=== PATIENT | female | born 1970 | race Caucasian/White ===

== ENCOUNTER → 2019-01-19 | Outpatient (CLI) | payer OTHER ==
[~2019-01-19] MED LIST: FERROUS SULFAT325 M2 PO; MULTIPLE VITAMI1 CAP PO
== END | disposition home or self-care (01) ==
LOC: ORTHO 02:52
DX: M76.891 Other specified enthesopathies of right lower limb, excluding foot (principal)

== ENCOUNTER → 2019-02-08 | Outpatient (CLI) | payer OTHER | END | disposition home or self-care (01) | LOC: MRI 14:35 | DX: S83.241A Other tear of medial meniscus, current injury, right knee, initial encounter (principal); X58.XXXA Exposure to other specified factors, initial encounter; Y93.89 Activity, other specified; Y92.89 Other specified places as the place of occurrence of the external cause; Y99.8 Other external cause status ==

== ENCOUNTER 2021-03-31 14:34 | Emergency (ER) | payer OTHER ==
[~2021-03-31] VITALS: Ht 160 cm; Wt 86.2 kg
[2021-03-31 17:48] LABS: MEAN CELL VOLUME 57.3 fl (81.0-99.0); MEAN CORPUSCULAR HGB 14.3 pg (27.0-31.0); NUCLEATED RED BLOOD CELL 0.2 % (0.0-0.0); PLATELET COUNT AUTOMATED 338 10*3/uL (130-400); RED BLOOD COUNT 3.07 10*6/uL (4.10-5.10); RED CELL DISTRI WIDTH 23.1 % (0-14.5); WHITE BLOOD COUNT 12.5 10*3/uL (4.8-10.8)
[2021-03-31 17:51] LABS: HEMATOCRIT 17.6 % (37.0-47.0)
[2021-03-31 18:02] LABS: ALBUMIN 3.3 gm/dl (3.1-4.5); ALKALINE PHOSPHATASE 87 U/L (45-117); BUN 5 mg/dl (7-24); CHLORIDE 105 mmol/L (98-107); CREATININE 0.57 mg/dL (0.55-1.02); POTASSIUM 3.8 mmol/L (3.5-5.1); SGOT/AST 7 IU/L (3-35); SGPT/ALT 19 U/L (12-78); SODIUM 137 mmol/L (136-145); TOTAL PROTEIN 7.6 gm/dL (6.4-8.2)
[2021-03-31 18:15] LABS: BASOPHILS 2 % (0-1); MICROCYTOSIS MARKED; PLATELET SUFFICIENCY NORMAL (NORMAL); POLYCHROMASIA SLIGHT; TOTAL CELLS COUNTED 100 #CELLS
[2021-03-31 18:33] LABS: ACT PARTIAL THROMBO TIME 23.6 SECONDS (20.0-32.1)
[2021-03-31 20:23] VITALS: BP 125/47
[2021-03-31 21:00] VITALS: BP 126/38
[2021-03-31 21:56] VITALS: BP 140/44
[2021-03-31 23:19] VITALS: BP 125/50
[2021-04-01 01:04] VITALS: BP 113/46
== END 2021-04-01 02:26 | disposition home or self-care (01) ==
LOC: ED 14:34
PROVIDERS: Physician Assistant
DX: D64.9 Anemia, unspecified (principal); N93.9 Abnormal uterine and vaginal bleeding, unspecified; Z88.0 Allergy status to penicillin; Z79.899 Other long term (current) drug therapy

== ENCOUNTER 2021-05-11 14:17 | Emergency (ER) | payer OTHER ==
[2021-05-11] VITALS (7 sets, daily range): BP systolic 120–146; BP diastolic 51–64
[~2021-05-11] VITALS: Ht 157.4 cm; Wt 88.5 kg
[2021-05-11 15:20] LABS: BILIRUBIN 1+ (Negative); BLOOD 3+ (Negative); CLARITY Turbid (Clear); COLOR Orange (Yellow); GLUCOSE Negative (Negative); KETONE 1+ (Negative); LEUKO ESTERASE 1+ (Negative); NITRITE Negative (Negative); SPECIFIC GRAVITY 1.025 (1.001-1.030)
[2021-05-11 15:27] LABS: RBC TNTC rbc/hpf (0-2)
[2021-05-11 15:54] LABS: MEAN CELL VOLUME 63.4 fl (81.0-99.0); MEAN CORPUSCULAR HGB 15.5 pg (27.0-31.0); MEAN CORPUSCULAR HGB CONC 24.4 g/dl (33.0-37.0); PLATELET COUNT AUTOMATED 331 10*3/uL (130-400); RED BLOOD COUNT 2.65 10*6/uL (4.10-5.10); RED CELL DISTRI WIDTH 25.5 % (0-14.5); WHITE BLOOD COUNT 21.2 10*3/uL (4.8-10.8)
[2021-05-11 16:00] LABS: HEMATOCRIT 16.8 % (37.0-47.0)
[2021-05-11 16:08] LABS: ALKALINE PHOSPHATASE 76 U/L (45-117); BUN 7 mg/dl (7-24); CHLORIDE 106 mmol/L (98-107); CREATININE 0.59 mg/dL (0.55-1.02); POTASSIUM 3.5 mmol/L (3.5-5.1); SGOT/AST 6 IU/L (3-35); SGPT/ALT 13 U/L (12-78); SODIUM 137 mmol/L (136-145); TOTAL PROTEIN 6.8 gm/dL (6.4-8.2)
[2021-05-11 16:11] LABS: TOTAL CELLS COUNTED 100 #CELLS
[2021-05-11 16:12] LABS: MICROCYTOSIS MODERATE
[2021-05-11 16:13] LABS: POLYCHROMASIA MODERATE; STOMATOCYTE FEW
[2021-05-11 16:16] LABS: PLATELET SUFFICIENCY NORMAL (NORMAL)
== END 2021-05-12 00:50 | disposition short-term general hospital (02) ==
LOC: ED 14:17
PROVIDERS: Emergency Medicine; Physician Assistant
DX: N93.9 Abnormal uterine and vaginal bleeding, unspecified (principal); D72.829 Elevated white blood cell count, unspecified; D64.9 Anemia, unspecified; Z88.0 Allergy status to penicillin; Z79.899 Other long term (current) drug therapy; Z98.890 Other specified postprocedural states

== ENCOUNTER → 2021-06-26 | Outpatient (CLI) | payer OTHER ==
[2021-06-26 15:09] LABS: BASO # 0.1 10*3/uL (0.0-0.1); BASO % 0.6 % (0.0-1.0); EOS # 0.4 10*3/uL (0.0-0.4); EOS % 4.9 % (1.0-4.0); HEMATOCRIT 30.2 % (37.0-47.0); LYMPH # 1.4 10*3/uL (1.3-4.4); LYMPH % 18.1 % (27.0-41.0); MEAN CELL VOLUME 70.7 fl (81.0-99.0); MEAN CORPUSCULAR HGB 18.3 pg (27.0-31.0); MEAN CORPUSCULAR HGB CONC 25.8 g/dl (33.0-37.0); MONO # 0.4 10*3/uL (0.1-1.0); MONO % 4.7 % (3.0-9.0); NEUT # 5.6 10*3/uL (2.3-7.9); NEUT % 71.4 % (47.0-73.0); PLATELET COUNT AUTOMATED 333 10*3/uL (130-400); RED BLOOD COUNT 4.27 10*6/uL (4.10-5.10); RED CELL DISTRI WIDTH 26.3 % (0-14.5); WHITE BLOOD COUNT 7.8 10*3/uL (4.8-10.8)
[2021-06-30 16:08] LABS: FACTOR VIII ACTIVITY 150 % (56-140); VON WILLEBRAND FACTOR AG 129 % (50-200)
[2021-06-30 17:06] LABS: VON WILLEBRAND ACTIVITY 130 % (50-200)
== END | disposition home or self-care (01) ==
LOC: LAB 14:42
PROVIDERS: ATTEND Obstetrics & Gynecology
DX: N93.9 Abnormal uterine and vaginal bleeding, unspecified (principal)